=== PATIENT | male | born 1970 | race Two or more races ===

== ENCOUNTER 2018-01-26 18:09 | Inpatient (IN) | payer BC ==
[~2018-01-26] VITALS: Ht 172.7 cm; Wt 96.1 kg
[2018-01-26 18:54] LABS: Basophils # (auto) 0 uL; Basophils % (auto) 0.4 % (0.0-2.0); Eosinophils # (auto) 0 uL; Eosinophils % (auto) 0.4 % (0.0-7.0); Hematocrit 40.6 % (41.0-53.0); Hemoglobin 14.1 g/dL (13.5-17.5); Lymphocytes # (auto) 0.7 uL; Lymphocytes % (auto) 15.3 % (10.0-50.0); Mean Corpuscular Hemoglobin 32.4 pg (28.0-32.0); Mean Corpuscular Hgb Conc. 34.8 g/dL (32.0-36.0); Mean Corpuscular Volume 93.1 fL (80.0-100.0); Monocytes # (auto) 0.5 uL; Monocytes % (auto) 11.6 % (0.0-12.0); Neutrophils # (auto) 3.2 uL; Neutrophils % (auto) 72.3 % (37.0-80.0); Nucleated Red Blood Cells % 0.1 %; Platelet Count (auto) 134 10^3/uL (140-450); Red Blood Cells 4.36 10^6/uL (4.5-5.90); Red Cell Distribution Width 13.1 % (11.8-14.3); White Blood Cell 4.4 10^3/uL (4.4-10.8)
[2018-01-26 18:56] LABS: Urine Bacteria NONE SEEN /hpf (None Seen); Urine Blood 2+ /uL (Negative); Urine Specific Gravity 1.024 (1.001-1.035); Urine WBC 2 /hpf (0 - 3)
[2018-01-26] MEDS ORDERED: KETOROLAC TROMETH 30 MG/ML 1ML VIAL IV ONE (19:00)
[2018-01-26] MEDS ORDERED: ONDANSETRON HCL 4 MG/2 ML VIAL ONE (19:02)
[2018-01-26] MEDS ORDERED: IOHEXOL 300 MG/ML 100ML BOTTLE IJ ONE (19:04)
[2018-01-26 19:15] LABS: Albumin 4.4 g/dL (3.4-5.0); BUN/Creatinine Ratio 15.5; Bilirubin, Total 2.2 mg/dL (0.2-1.0); Potassium 3.8 mmol/L (3.5-5.1)
[2018-01-26] MEDS ORDERED: SODIUM CHLORIDE 0.9% 1,000 ML IV ONE (19:15)
[2018-01-26] MEDS ORDERED: ONDANSETRON HCL 4 MG/2 ML VIAL IV ONE (19:15)
[2018-01-26] MEDS ORDERED: CIPROFLOXACIN 400MG/200ML 200 ML IV ONE (20:15)
[2018-01-26] MEDS ORDERED: LORazepam 2MG/ML-1ML VIAL IV PRN (23:45)
[2018-01-26] MEDS ORDERED: ONDANSETRON HCL 4 MG/2 ML VIAL IV PRN (23:45)
[2018-01-26] MEDS ORDERED: MORPHINE SULFATE 10 MG/ML INJ 1ML SDV IV PRN (23:45)
[2018-01-27] VITALS (7 sets, daily range): BP systolic 125–144; BP diastolic 70–87
[2018-01-27] MEDS: ACETAMINOPHEN 500 MG TAB PO PRN ×2 (01:09→20:34)
[2018-01-27] MEDS: metroNIDAZOLE 500MG/100ML 100 ML IV SCH ×2 (01:09→07:57)
[2018-01-27] MEDS: SODIUM CHLORIDE 0.9% 1,000 ML IV SCH ×3 (01:10→22:01)
[2018-01-27 06:04] LABS: Basophils # (auto) 0 uL; Basophils % (auto) 0.3 % (0.0-2.0); Eosinophils # (auto) 0 uL; Eosinophils % (auto) 0.9 % (0.0-7.0); Hematocrit 38.2 % (41.0-53.0); Hemoglobin 13.3 g/dL (13.5-17.5); Lymphocytes # (auto) 0.7 uL; Lymphocytes % (auto) 18.4 % (10.0-50.0); Mean Corpuscular Hemoglobin 32.3 pg (28.0-32.0); Mean Corpuscular Hgb Conc. 34.8 g/dL (32.0-36.0); Mean Corpuscular Volume 92.7 fL (80.0-100.0); Monocytes # (auto) 0.5 uL; Monocytes % (auto) 13.1 % (0.0-12.0); Neutrophils # (auto) 2.6 uL; Neutrophils % (auto) 67.3 % (37.0-80.0); Nucleated Red Blood Cells % 0.1 %; Platelet Count (auto) 110 10^3/uL (140-450); Red Blood Cells 4.12 10^6/uL (4.5-5.90); Red Cell Distribution Width 13.1 % (11.8-14.3); White Blood Cell 3.9 10^3/uL (4.4-10.8)
[2018-01-27 06:28] LABS: Potassium 3.9 mmol/L (3.5-5.1)
[2018-01-27 06:40] LABS: BUN/Creatinine Ratio 17.9; Calcium 8.5 mg/dL (8.5-10.1)
[2018-01-27] MEDS ORDERED: MORPHINE SULF INJ 2 MG/ML SYRINGE 1ML IV PRN (07:30)
[2018-01-27] MEDS: HYDROmorphone HCL 2 MG/ML VL IV PRN ×4 (08:17→17:53)
[2018-01-27] MEDS: cefTRIAXone 1GM/10ml IVPUSH 10 ML IV SCH (11:10)
[2018-01-27] MEDS: HYDROcodone-ACET 5/325MG TAB PO PRN ×3 (11:12→19:04)
[2018-01-27 12:25] LABS: Creatine Kinase IFCC 215 U/L (39-308); Lactate Dehydrogenase 316 U/L (87-241)
[2018-01-28] MEDS: TEMAZEPAM 15 MG CAP PO PRN (00:15)
[2018-01-28 05:12] VITALS: BP 125/79
[2018-01-28 06:00] LABS: Basophils # (auto) 0 uL; Basophils % (auto) 0.2 % (0.0-2.0); Eosinophils # (auto) 0 uL; Hematocrit 38.1 % (41.0-53.0); Hemoglobin 13.5 g/dL (13.5-17.5); Lymphocytes # (auto) 0.4 uL; Lymphocytes % (auto) 10.8 % (10.0-50.0); Mean Corpuscular Hemoglobin 32.7 pg (28.0-32.0); Mean Corpuscular Hgb Conc. 35.3 g/dL (32.0-36.0); Mean Corpuscular Volume 92.5 fL (80.0-100.0); Monocytes # (auto) 0.5 uL; Monocytes % (auto) 11.9 % (0.0-12.0); Neutrophils # (auto) 2.9 uL; Neutrophils % (auto) 76.1 % (37.0-80.0); Nucleated Red Blood Cells % 0.1 %; Platelet Count (auto) 120 10^3/uL (140-450); Red Blood Cells 4.12 10^6/uL (4.5-5.90); Red Cell Distribution Width 12.9 % (11.8-14.3); White Blood Cell 3.8 10^3/uL (4.4-10.8)
[2018-01-28] MEDS: ACETAMINOPHEN 500 MG TAB PO PRN ×2 (06:24→16:25)
[2018-01-28 06:27] LABS: INR 1.02 (0.9-1.15); Partial Thromboplastin Time 32.7 sec (23.78-33.04); Prothrombin Time 10.9 sec (9.27-12.13)
[2018-01-28 06:50] LABS: Albumin 3.9 g/dL (3.4-5.0); BUN/Creatinine Ratio 15.2; Bilirubin, Total 1.8 mg/dL (0.2-1.0); Calcium 8.7 mg/dL (8.5-10.1); Potassium 4.2 mmol/L (3.5-5.1); Total Protein 7.3 g/dL (6.4-8.2)
[2018-01-28 09:00] VITALS: BP 136/70
[2018-01-28] MEDS: cefTRIAXone 1GM/10ml IVPUSH 10 ML IV SCH ×2 (09:00→15:09)
[2018-01-28] MEDS: SODIUM CHLORIDE 0.9% 1,000 ML IV SCH (15:09)
[2018-01-28 16:48] VITALS: BP 134/78
[2018-01-28 20:18] LABS: % Iron Saturation 17.2 % (20-55)
[2018-01-28 22:00] VITALS: BP 127/74
[2018-01-29] MEDS: HYDROcodone-ACET 5/325MG TAB PO PRN (00:59)
[2018-01-29 05:00] VITALS: BP 115/75
[2018-01-29] MEDS: SODIUM CHLORIDE 0.9% 1,000 ML IV SCH ×2 (05:57→20:53)
[2018-01-29 06:43] LABS: Basophils # (auto) 0 uL; Basophils % (auto) 0.5 % (0.0-2.0); Eosinophils # (auto) 0.1 uL; Eosinophils % (auto) 1.9 % (0.0-7.0); Hematocrit 36.4 % (41.0-53.0); Hemoglobin 12.6 g/dL (13.5-17.5); Lymphocytes # (auto) 0.7 uL; Lymphocytes % (auto) 20.7 % (10.0-50.0); Mean Corpuscular Hemoglobin 32.2 pg (28.0-32.0); Mean Corpuscular Hgb Conc. 34.7 g/dL (32.0-36.0); Monocytes # (auto) 0.5 uL; Monocytes % (auto) 16.6 % (0.0-12.0); Neutrophils # (auto) 1.9 uL; Neutrophils % (auto) 60.3 % (37.0-80.0); Nucleated Red Blood Cells % 0.5 %; Platelet Count (auto) 131 10^3/uL (140-450); Red Blood Cells 3.91 10^6/uL (4.5-5.90); White Blood Cell 3.2 10^3/uL (4.4-10.8)
[2018-01-29 06:56] LABS: Albumin 3.4 g/dL (3.4-5.0); BUN/Creatinine Ratio 14.1; Calcium 8.5 mg/dL (8.5-10.1); Potassium 4.2 mmol/L (3.5-5.1)
[2018-01-29 06:59] LABS: Bilirubin, Total 1.1 mg/dL (0.2-1.0); Total Protein 6.8 g/dL (6.4-8.2)
[2018-01-29 07:53] VITALS: BP 113/65
[2018-01-29 10:14] LABS: Folate (Folic Acid) 13.17 ng/mL (5.38-24)
[2018-01-29] MEDS: cefTRIAXone 1GM/10ml IVPUSH 10 ML IV SCH (10:16)
[2018-01-29 12:06] VITALS: BP 137/77
[2018-01-29 16:50] VITALS: BP 124/79
[2018-01-29] MEDS: TEMAZEPAM 15 MG CAP PO PRN (21:52)
[2018-01-29 22:00] VITALS: BP 140/88
[2018-01-30 05:00] VITALS: BP 121/69
[2018-01-30 05:42] LABS: Basophils # (auto) 0 uL; Basophils % (auto) 0.3 % (0.0-2.0); Eosinophils # (auto) 0.1 uL; Eosinophils % (auto) 2.2 % (0.0-7.0); Hematocrit 37.8 % (41.0-53.0); Hemoglobin 13.3 g/dL (13.5-17.5); Lymphocytes # (auto) 0.8 uL; Lymphocytes % (auto) 20.1 % (10.0-50.0); Mean Corpuscular Hemoglobin 32.5 pg (28.0-32.0); Mean Corpuscular Hgb Conc. 35.2 g/dL (32.0-36.0); Mean Corpuscular Volume 92.3 fL (80.0-100.0); Monocytes # (auto) 0.5 uL; Neutrophils # (auto) 2.6 uL; Neutrophils % (auto) 64.4 % (37.0-80.0); Nucleated Red Blood Cells % 0.5 %; Platelet Count (auto) 159 10^3/uL (140-450); Red Cell Distribution Width 12.5 % (11.8-14.3)
[2018-01-30 08:54] VITALS: BP 129/70
[2018-01-30] MEDS: SODIUM CHLORIDE 0.9% 1,000 ML IV SCH (09:40)
[2018-01-30] MEDS: cefTRIAXone 1GM/10ml IVPUSH 10 ML IV SCH (09:40)
[2018-01-31 13:30] LABS: Hepatitis B Surface Antibody Negative
[2018-01-31 14:02] LABS: Hepatitis A Total Antibody Positive
[2018-01-31 18:00] LABS: Hepatitis B Surface Antigen Negative (Negative)
[2018-01-31 18:04] LABS: Hepatitis B Core Total AB Negative; Hepatitis C Antibody Negative (Negative)
[2018-02-01 11:25] LABS: Immunoglobulin G, Serum 800 mg/dL (700-1600)
== END 2018-01-30 16:00 | disposition home or self-care (01) | DRG 872 ==
LOC: ER 18:09 → OVERFLOW 18:10 → EAST 01-27
PROVIDERS: ADMIT Nurse Practitioner Family; ATTEND Internal Medicine
DX: A41.9 Sepsis, unspecified organism (principal); D69.59 Other secondary thrombocytopenia; K76.0 Fatty (change of) liver, not elsewhere classified; N30.01 Acute cystitis with hematuria; I10 Essential (primary) hypertension; K42.9 Umbilical hernia without obstruction or gangrene; D35.02 Benign neoplasm of left adrenal gland; E66.9 Obesity, unspecified; K57.30 Diverticulosis of large intestine without perforation or abscess without bleeding; D69.6 Thrombocytopenia, unspecified; Z88.0 Allergy status to penicillin; Z68.32 Body mass index [BMI] 32.0-32.9, adult
CPT/HCPCS: 36415; 71046; 74177; 76705; 77074; 80048; 80053; 81001; 82550; 82607; 82746; 82784; 83540; 83550; 83615; 85025; 85610; 85730; 86334; 86335; 86704; 86706; 86708; 86803; 87040; 87086; 87340; 94761; 96361; 96365; 96375; J1885; J2405; J3490

== ENCOUNTER 2021-07-21 12:30 | Emergency (ER) | payer BC, OTHER ==
[~2021-07-21] VITALS: Ht 172.7 cm; Wt 99.3 kg
[2021-07-21] MEDS ORDERED: FLUORESCEIN SOD OPTH TEST STRIP OP ONE (13:00)
[2021-07-21] MEDS ORDERED: TETRACAINE HCL 0.5% OPTH(EYE) SOLN 4ML EACHEYE ONE (13:00)
[2021-07-21 13:08] VITALS: BP 140/82
== END 2021-07-21 14:33 | disposition home or self-care (01) ==
LOC: ER 12:30
DX: T15.01XA Foreign body in cornea, right eye, initial encounter (principal); I10 Essential (primary) hypertension; Z88.0 Allergy status to penicillin; X58.XXXA Exposure to other specified factors, initial encounter; Y93.89 Activity, other specified; Y92.89 Other specified places as the place of occurrence of the external cause; Y99.8 Other external cause status
CPT/HCPCS: 65222